=== PATIENT | male | born 1980 | race Caucasian/White ===

== ENCOUNTER 2023-02-12 14:08 | Inpatient (IN) | payer OTHER ==
[~2023-02-12] VITALS: Ht 175.3 cm; Wt 77.1 kg
[~2023-02-12 14:08] MED LIST: LEVSIN/SL0.125 MG PO; PROTONIX40 MG PO
[2023-02-12 14:44] LABS: HEMATOCRIT 42.5 % (39.0-48.0); HEMOGLOBIN 14.3 g/dL (13-16.00); MEAN CELL VOLUME 74.3 fL (80.0-100.00); MEAN CORPUSCULAR HEMOGLOBIN 25.1 pg (27.00-32.0); MEAN CORPUSCULAR HGB CONC 33.7 g/dl (32.0-36.0); PLATELET COUNT 276 K/uL (150-450); RED BLOOD COUNT 5.72 M/uL (4.00-6.00)
[2023-02-12 15:10] LABS: INR 1.02; PARTIAL THROMBOPLASTIN TIME 28.5 SECONDS (22.0-34.0); PROTHROMBIN TIME 10.7 SECONDS (9.0-11.5)
[2023-02-12 15:54] LABS: ALBUMIN 4.1 gm/dL (3.4-5.0); BILIRUBIN TOTAL 0.48 mg/dL (0.3-1.2); CALCIUM 9.6 mg/dL (8.5-10.1); CREATININE SERUM 0.87 mg/dL (0.70-1.30); GFR 97.19; GLOBULINA 3.6 G/DL (2.4-3.5); POTASSIUM 4.66 mEq/L (3.5-5.1); TOTAL PROTEIN 7.7 gm/dL (6.4-8.2)
[2023-02-13 04:50] LABS: HEMATOCRIT 41.5 % (39.0-48.0); MEAN CELL VOLUME 74.2 fL (80.0-100.00); MEAN CORPUSCULAR HEMOGLOBIN 25.1 pg (27.00-32.0); MEAN CORPUSCULAR HGB CONC 33.8 g/dl (32.0-36.0); PLATELET COUNT 258 K/uL (150-450); RED CELL DISTRIBUTION WIDTH 22.5 % (11.5-14.5)
[2023-02-13 05:15] LABS: ALBUMIN 3.7 gm/dL (3.4-5.0); BILIRUBIN TOTAL 0.48 mg/dL (0.3-1.2); CALCIUM 9.4 mg/dL (8.5-10.1); CREATININE SERUM 0.79 mg/dL (0.70-1.30); GFR 108.63; GLOBULINA 3.3 G/DL (2.4-3.5); POTASSIUM 5.61 mEq/L (3.5-5.1)
[2023-02-14 14:19] LABS: ALBUMIN 3.7 gm/dL (3.4-5.0); BILIRUBIN TOTAL 0.52 mg/dL (0.3-1.2); CREATININE SERUM 0.81 mg/dL (0.70-1.30); GFR 105.54; GLOBULINA 3.3 G/DL (2.4-3.5); POTASSIUM 4.48 mEq/L (3.5-5.1)
[2023-02-15 07:04] LABS: ALBUMIN 3.9 gm/dL (3.4-5.0); BILIRUBIN TOTAL 0.45 mg/dL (0.3-1.2); CALCIUM 9.8 mg/dL (8.5-10.1); CREATININE SERUM 0.67 mg/dL (0.70-1.30); GFR 131.38; GLOBULINA 3.3 G/DL (2.4-3.5); POTASSIUM 4.84 mEq/L (3.5-5.1); TOTAL PROTEIN 7.2 gm/dL (6.4-8.2)
[2023-02-16 09:48] LABS: PLATELET ESTIMATE NORMAL (NORMAL)
== END 2023-02-15 18:32 | disposition home or self-care (01) | DRG 641 ==
LOC: MEDI 14:08 → MEDJ 14:08 → MEDI 14:15
PROVIDERS: ADMIT Internal Medicine Hematology & Oncology; ATTEND Internal Medicine Hematology & Oncology
DX: E87.5 Hyperkalemia (principal); M62.82 Rhabdomyolysis; G71.09 Other specified muscular dystrophies; E86.0 Dehydration